=== PATIENT | female | born 1925 | race Caucasian/White ===

== ENCOUNTER → 2016-05-30 | Outpatient (REF) | payer MEDICARE, BC, MEDICAID ==
[~2016-05-30] MED LIST: /CLON1TA PO; /SYST15OP OU; AMLO5TAB2 PO; ASPI1TAB PO; ASPI81TA13 PO; CALC0.5C PO; CALC1CAP31 PO; CALC600T30 PO; CALCTAB68 PO; COLA50CA PO; DILT240C PO; ELIQ2.5T PO; FISH1000 PO; FURO20TA2 PO; HYDR25TA PO; IMDU30TA PO; LASI20TA PO; LASI40TA PO; LUTE20TA PO; MAGN400C2 PO; METO25TAB PO; MYSO50TA5 PO; POTA1TAB14 PO; PROP80TA PO; SYST1SOL OU; TYLE325T5 PO; VITA100037 PO
[2016-05-30 17:47] LABS: BASO % 0.6 % (0.0-1.0); EOS # 0.3 K/mm3 (0.0-0.50); EOS % 4.3 % (0.0-3.0); LARGE UNSTAINED CELL # 0.1 K/mm3 (0.0-0.4); LARGE UNSTAINED CELL % 1.2 % (0.0-4.0); LYMPH # 0.9 K/mm3 (1.5-4.5); LYMPH % 13.7 % (24.0-44.0); MEAN CORPUSCULAR HEMOGLOBIN 29.6 pg (27.0-33.0); MEAN CORPUSCULAR HGB CONC 30.4 g/dl (32.0-36.5); MEAN CORPUSCULAR VOLUME 97.1 fl (80.0-96.0); MONO # 0.3 K/mm3 (0.0-0.8); NEUTROPHILS # 5.2 K/mm3 (1.8-7.7); NEUTROPHILS % 75.1 % (36.0-66.0); PLATELET COUNT, AUTOMATED 282 k/mm3 (150-450); WHITE BLOOD COUNT 6.9 K/mm3 (4.0-10.0)
== END ==
LOC: M LAB REF 15:49
PROVIDERS: ATTEND Internal Medicine Nephrology
DX: N18.3 Chronic kidney disease, stage 3 (moderate) (principal); D63.1 Anemia in chronic kidney disease

== ENCOUNTER 2016-06-28 12:32 | Emergency (ER) | payer MEDICARE, BC, MEDICAID ==
[~2016-06-28] VITALS: Ht 154.9 cm; Wt 53.5 kg
[2016-06-28] MEDS ORDERED: PROP60TA14 PO (13:12)
[2016-06-28] MEDS ORDERED: PROC1INJ5 IJ (13:12)
[2016-06-28 13:39] LABS: BASO % 0.3 % (0.0-1.0); EOS # 0.3 K/mm3 (0.0-0.50); EOS % 4.4 % (0.0-3.0); LARGE UNSTAINED CELL # 0.1 K/mm3 (0.0-0.4); LARGE UNSTAINED CELL % 1.8 % (0.0-4.0); LYMPH % 12.5 % (24.0-44.0); MEAN CORPUSCULAR HEMOGLOBIN 30.1 pg (27.0-33.0); MEAN CORPUSCULAR HGB CONC 31.8 g/dl (32.0-36.5); MEAN CORPUSCULAR VOLUME 94.4 fl (80.0-96.0); MONO # 0.4 K/mm3 (0.0-0.8); NEUTROPHILS # 5.9 K/mm3 (1.8-7.7); PLATELET COUNT, AUTOMATED 263 k/mm3 (150-450); RED CELL DISTRIBUTION WIDTH 12.8 % (11.5-14.5); WHITE BLOOD COUNT 7.7 K/mm3 (4.0-10.0)
--- NOTE | 2016-06-28 13:48 | REP ---
CT STUDY OF THE CERVICAL SPINE WITHOUT CONTRAST: HISTORY: Injury in a fall. Patient on anticoagulant medication. TECHNIQUE: Helical scanning is acquired and overlapping 2 mm high resolution axial images were generated and reviewed at bone and soft tissue window settings. Coronal and sagittal multiplanar reformations images are generated. CT FINDINGS: There is no evidence of cervical spine element fracture. No skull base fracture is seen. Cervical vertebral body heights are preserved. Alignment is normal. Facet joints are normally aligned bilaterally at each cervical level on multiplanar re-formations images. There is no evidence of intraspinal or paraspinal hematoma. There are advanced degenerative spondylosis changes. There is developmental fusion of the posterior aspect of the disc at C4-5 and of the facet joints bilaterally at C4-5. There is arthritis associated cystic change in the mid dens. 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 No extra vertebral abnormality is seen. IMPRESSION: Degenerative spondylosis changes, otherwise negative CT study of the cervical spine without contrast. No fracture seen. Signed by Krish Grimes MD 06/28/2016 06:19 P
--- NOTE | 2016-06-28 13:53 | REP ---
CT BRAIN WITHOUT CONTRAST: 06/28/2016 CLINICAL HISTORY: Trauma. The patient fell. On anticoagulant. COMPARISON: 12/03/2015 FINDINGS: Soft-tissue and bone windows for each slice level are performed. There is ventriculomegaly with moderate diffuse atrophy, unchanged. There are heterogeneous low attenuation white matter changes bilaterally representing chronic small vessel ischemic disease. Ventriculomegaly is unchanged with symmetric, dilated lateral ventricles, third and fourth ventricle all in proportion. There is no vascular territory infarct, intracranial hemorrhage, mass or mass effect. Brainstem was unremarkable. Cerebellum shows atrophy without acute finding. Mastoids sinuses are clear. Skull base and calvarium show no fracture or acute finding. There is a scalp hematoma in the right anterior parietal vertex. No subjacent fracture or contrecoup injury. IMPRESSION: 1. There is a scalp hematoma over the right parietal region near the vertex without skull fracture of the calvarium or skull base. 2. Sinuses and mastoids intact. 3. Atrophy, portion of ventriculomegaly, heterogeneous white matter changes representing small-vessel ischemic disease. All of this stable from the previous exam. Signed by Oswaldo Robles MD 06/28/2016 06:40 P
[2016-06-28 13:56] LABS: CALCIUM LEVEL 9.9 MG/DL (8.8-10.2); CREATININE FOR GFR 2.63 MG/DL (0.55-1.02); GLOMERULAR FILTRATION RATE 18.2 (>32); POTASSIUM SERUM 4.4 MEQ/L (3.5-5.1)
[2016-06-28 16:54] VITALS: BP 170/77
--- NOTE | 2016-06-28 17:34 | ECGEPIP ---
Stationary ECG Study [facility] - ED Test Date: 2016-06-28 Pat Name: SR COREA Department: Room: - Gender: F Reed Repairer: yamileth : 1925 Requested By: BATSHEVA Duong Order Number: [id number] Reading MD: Bill Morales Measurements Intervals [place] Rate: 76 P: ID: 0 QRS: -40 QRSD: 89 T: 30 QT: 374 QTc: 422 Interpretive Statements ATRIAL FIBRILLATION LEFT AXIS DEVIATION LAE INC. RBBB SIMILAR TO 05/21/14 Electronically Signed On 06-28-2016 17:33:48 EDT by Bill Morales
== END 2016-06-28 16:57 | disposition home or self-care (01) ==
LOC: EDBD 12:32 → M ED 15:11
DX: S09.8XXA Other specified injuries of head, initial encounter (principal); W18.30XA Fall on same level, unspecified, initial encounter; Y92.019 Unspecified place in single-family (private) house as the place of occurrence of the external cause; Y93.89 Activity, other specified; Y99.8 Other external cause status; N17.9 Acute kidney failure, unspecified; I73.9 Peripheral vascular disease, unspecified; Z79.01 Long term (current) use of anticoagulants

== ENCOUNTER → 2016-07-31 | Outpatient (REF) | payer MEDICARE, BC, MEDICAID ==
[~2016-07-31] MED LIST changes: +PROC1INJ5 IJ; +PROP60TA14 PO
[2016-07-31 11:15] LABS: BASO % 0.5 % (0.0-1.0); EOS # 0.4 K/mm3 (0.0-0.50); EOS % 4.3 % (0.0-3.0); LARGE UNSTAINED CELL # 0.1 K/mm3 (0.0-0.4); LARGE UNSTAINED CELL % 0.9 % (0.0-4.0); LYMPH # 1.2 K/mm3 (1.5-4.5); LYMPH % 14.6 % (24.0-44.0); MEAN CORPUSCULAR HEMOGLOBIN 29.9 pg (27.0-33.0); MEAN CORPUSCULAR HGB CONC 31.2 g/dl (32.0-36.5); MEAN CORPUSCULAR VOLUME 95.9 fl (80.0-96.0); MONO # 0.3 K/mm3 (0.0-0.8); MONO % 3.9 % (0.0-5.0); NEUTROPHILS # 6.3 K/mm3 (1.8-7.7); NEUTROPHILS % 75.8 % (36.0-66.0); PLATELET COUNT, AUTOMATED 237 k/mm3 (150-450); RED CELL DISTRIBUTION WIDTH 12.7 % (11.5-14.5); WHITE BLOOD COUNT 8.2 K/mm3 (4.0-10.0)
== END ==
LOC: M LAB REF 10:47
PROVIDERS: ATTEND Internal Medicine Nephrology
DX: N18.3 Chronic kidney disease, stage 3 (moderate) (principal); D63.1 Anemia in chronic kidney disease

== ENCOUNTER → 2016-08-30 | Outpatient (REF) | payer MEDICARE, BC ==
[2016-08-30 14:58] LABS: BASO % 0.5 % (0.0-1.0); EOS # 0.3 K/mm3 (0.0-0.50); EOS % 4.1 % (0.0-3.0); LARGE UNSTAINED CELL # 0.1 K/mm3 (0.0-0.4); LARGE UNSTAINED CELL % 1.2 % (0.0-4.0); LYMPH # 1.2 K/mm3 (1.5-4.5); LYMPH % 13.4 % (24.0-44.0); MEAN CORPUSCULAR HEMOGLOBIN 31.2 pg (27.0-33.0); MEAN CORPUSCULAR HGB CONC 32.4 g/dl (32.0-36.5); MEAN CORPUSCULAR VOLUME 96.1 fl (80.0-96.0); MONO # 0.5 K/mm3 (0.0-0.8); MONO % 6.3 % (0.0-5.0); NEUTROPHILS # 6.2 K/mm3 (1.8-7.7); NEUTROPHILS % 74.5 % (36.0-66.0); PLATELET COUNT, AUTOMATED 273 k/mm3 (150-450); RED CELL DISTRIBUTION WIDTH 13.4 % (11.5-14.5); WHITE BLOOD COUNT 8.3 K/mm3 (4.0-10.0)
== END ==
LOC: M LAB REF 14:47
PROVIDERS: ATTEND Internal Medicine Nephrology
DX: N18.3 Chronic kidney disease, stage 3 (moderate) (principal); D63.1 Anemia in chronic kidney disease

== ENCOUNTER → 2016-09-12 | Outpatient (REF) | payer MEDICARE, BC ==
[2016-09-12 13:12] LABS: MEAN CORPUSCULAR HEMOGLOBIN 30.7 pg (27.0-33.0); MEAN CORPUSCULAR HGB CONC 32.1 g/dl (32.0-36.5); MEAN CORPUSCULAR VOLUME 95.7 fl (80.0-96.0); RED CELL DISTRIBUTION WIDTH 14.1 % (11.5-14.5); WHITE BLOOD COUNT 7.6 K/mm3 (4.0-10.0)
[2016-09-12 13:33] LABS: ALBUMIN 3.3 GM/DL (3.2-5.2); ALBUMIN/GLOBULIN RATIO 0.94 (1.00-1.93); BILIRUBIN,TOTAL 0.4 MG/DL (0.2-1.0); CALCIUM LEVEL 9.2 MG/DL (8.8-10.2); CREATININE FOR GFR 2.68 MG/DL (0.55-1.02); GLOMERULAR FILTRATION RATE 17.8 (>32); PERCENT SATURATION 17.1 % (13.2-37.4); POTASSIUM SERUM 4.1 MEQ/L (3.5-5.1); TOTAL PROTEIN 6.8 GM/DL (6.4-8.2)
== END ==
LOC: M LAB REF 11:36
PROVIDERS: ATTEND Internal Medicine
DX: I13.0 Hypertensive heart and chronic kidney disease with heart failure and stage 1 through stage 4 chronic kidney disease, or unspecified chronic kidney disease (principal); D63.1 Anemia in chronic kidney disease; I48.0 Paroxysmal atrial fibrillation

== ENCOUNTER → 2016-09-21 | Outpatient (CLI) | payer MEDICARE, BC ==
--- NOTE | 2016-09-21 15:25 | REP ---
LEFT HIP, TWO VIEWS: HISTORY: Injury. COMPARISON: 02/11/2013 The patient is status post ORIF of a proximal left femur fracture. A compression screw is present. There is on acute fracture or dislocation. There is narrowing of the joint space. The bony structure is osteopenic. IMPRESSION: The patient is status post ORIF of a proximal left femur fracture. Signed by Gavin Monson MD 09/21/2016 03:28 P
== END ==
LOC: M WUC 14:48
PROVIDERS: ATTEND Physician Assistant
DX: S70.02XA Contusion of left hip, initial encounter (principal); X58.XXXA Exposure to other specified factors, initial encounter; Y92.89 Other specified places as the place of occurrence of the external cause; Y93.89 Activity, other specified; Y99.8 Other external cause status

== ENCOUNTER → 2016-10-27 | Outpatient (REF) | payer MEDICARE, BC ==
[~2016-10-27] MED LIST changes: -ASPI81TA13 PO; +ASPI81TA24 PO
[2016-10-27 17:48] LABS: BASO % 0.4 % (0.0-1.0); EOS # 0.3 K/mm3 (0.0-0.50); EOS % 3.8 % (0.0-3.0); LARGE UNSTAINED CELL # 0.1 K/mm3 (0.0-0.4); LARGE UNSTAINED CELL % 1.2 % (0.0-4.0); LYMPH # 1.1 K/mm3 (1.5-4.5); LYMPH % 12.5 % (24.0-44.0); MEAN CORPUSCULAR HEMOGLOBIN 30.8 pg (27.0-33.0); MEAN CORPUSCULAR HGB CONC 31.4 g/dl (32.0-36.5); MEAN CORPUSCULAR VOLUME 98.2 fl (80.0-96.0); MONO # 0.5 K/mm3 (0.0-0.8); MONO % 6.3 % (0.0-5.0); NEUTROPHILS # 6.3 K/mm3 (1.8-7.7); NEUTROPHILS % 75.9 % (36.0-66.0); PLATELET COUNT, AUTOMATED 321 k/mm3 (150-450); RED CELL DISTRIBUTION WIDTH 13.8 % (11.5-14.5); WHITE BLOOD COUNT 8.2 K/mm3 (4.0-10.0)
== END ==
LOC: M LAB REF 15:32
PROVIDERS: ATTEND Internal Medicine Nephrology
DX: N18.3 Chronic kidney disease, stage 3 (moderate) (principal); D63.1 Anemia in chronic kidney disease

== ENCOUNTER → 2016-11-30 | Outpatient (REF) | payer MEDICARE, BC ==
[2016-11-30 15:57] LABS: BASO % 0.5 % (0.0-1.0); EOS # 0.3 K/mm3 (0.0-0.50); EOS % 3.6 % (0.0-3.0); LARGE UNSTAINED CELL # 0.1 K/mm3 (0.0-0.4); LARGE UNSTAINED CELL % 0.7 % (0.0-4.0); LYMPH # 1.1 K/mm3 (1.5-4.5); LYMPH % 11.6 % (24.0-44.0); MEAN CORPUSCULAR HEMOGLOBIN 31.6 pg (27.0-33.0); MEAN CORPUSCULAR HGB CONC 32.2 g/dl (32.0-36.5); MEAN CORPUSCULAR VOLUME 98.1 fl (80.0-96.0); MONO # 0.5 K/mm3 (0.0-0.8); MONO % 5.4 % (0.0-5.0); NEUTROPHILS # 6.7 K/mm3 (1.8-7.7); NEUTROPHILS % 78.2 % (36.0-66.0); PLATELET COUNT, AUTOMATED 281 k/mm3 (150-450); RED CELL DISTRIBUTION WIDTH 13.1 % (11.5-14.5); WHITE BLOOD COUNT 8.6 K/mm3 (4.0-10.0)
== END ==
LOC: M LAB REF 15:39
PROVIDERS: ATTEND Internal Medicine Nephrology
DX: N18.3 Chronic kidney disease, stage 3 (moderate) (principal); D63.1 Anemia in chronic kidney disease

== ENCOUNTER → 2017-01-30 | Outpatient (REF) | payer MEDICARE, BC ==
[2017-01-30 21:16] LABS: BASO % 0.2 % (0.0-1.0); EOS # 0.3 10^3/uL (0.0-0.50); EOS % 3.3 % (0.0-3.0); IMMATURE GRANULOCYTE % 0.5 % (0-0); LYMPH # 1.2 10^3/uL (1.5-4.5); LYMPH % 13.3 % (24.0-44.0); MEAN CORPUSCULAR HEMOGLOBIN 31.5 pg (27.0-33.0); MEAN CORPUSCULAR HGB CONC 32.3 g/dl (32.0-36.5); MEAN CORPUSCULAR VOLUME 97.4 fl (80.0-96.0); MONO # 0.5 10^3/uL (0.0-0.8); MONO % 5.5 % (0.0-5.0); NEUTROPHILS # 6.8 10^3/uL (1.8-7.7); NEUTROPHILS % 77.2 % (36.0-66.0); PLATELET COUNT, AUTOMATED 271 10^3/uL (150-450); RED CELL DISTRIBUTION WIDTH 13.2 % (11.5-14.5); WHITE BLOOD COUNT 8.8 10^3/uL (4.0-10.0)
== END ==
LOC: M LAB REF 21:07
PROVIDERS: ATTEND Internal Medicine Nephrology
DX: N18.3 Chronic kidney disease, stage 3 (moderate) (principal); D63.1 Anemia in chronic kidney disease